=== PATIENT | female | born 1980 | race Caucasian/White ===

== ENCOUNTER 2016-12-01 15:18 | Emergency (ER) | payer OTHER ==
[~2016-12-01] VITALS: Ht 152.4 cm; Wt 45.4 kg
[~2016-12-01 15:18] MED LIST: ABILIFY30 M1 PO; DOXYCYCLINE MO100 MG PO; NEURONTIN600 M1 PO; TRAZODONE HCL50 M1 PO; ZOFRAN ODT4 M1 PO; [UNRECOGNIZED DRUG - OTHER] PO
[2016-12-01 15:20] VITALS: BP 114/73
--- NOTE | 2016-12-01 15:44 | ED HAND/WRIST INJURY COMPLAINT ---
History of Present Illness General Chief Complaint: Hand or Wrist Injury Stated Complaint: INJURY TO L HAND Source: patient, old records Exam Limitations: no limitations Vital Signs & Intake/Output Vital Signs & Intake/Output Vital Signs Date Time Temp Pulse Resp B/P Pulse O2 O2 Flow FiO2 Ox Delivery Rate 12/01 1550 98 Room Air 12/01 1520 97.1 69 20 114/73 97 Room Air ED Intake and Output 12/02 0000 12/01 1200 Intake Total Output Total Balance Patient 99 lb 15.99 oz Weight Allergies Coded Allergies: lithium (Intermediate, RASH 12/01/16) Reconcile Medications Aripiprazole (Abilify) 30 MG TABLET 1 TAB PO QAM MENTAL HEALTH (Reported) Gabapentin (Neurontin) 600 MG TABLET 1 TAB PO TID MENTAL HEALTH (Reported) Hydrocodone/Acetaminophen ([place] 5-325 Tablet) 5 MG-325 MG TABLET 1 TAB PO Q4- 6 PRN PRN pain Propranolol HCl 20 MG TABLET 1 TAB PO TID PRN ANXIETY (Reported) Trazodone HCl 50 MG TABLET 1-2 TAB PO QPM SLEEP (Reported) Triage Note: TRIAGE: PT TO ER C/C PAIN TO L HAND FROM L PINKY FINGER INTO HAND S/P INJURY YESTERDAY. STATES SHE SLAMMED IT IN A DOOR YESTERDAY. HAS BEEN ICING IT WITH SOME TEMPORARY RELIEF. HAS NOT TRIED ANY OTC PAIN MEDICATIONS. MEDICATED WITH TYLENOL PER PROTOCOL AND PT REQUEST AT TRIAGE. UNSURE OF LAST MENSES, STATES "I WAS ON THE PILL SO I WASN'T REALLY HAVING ONE". Triage Nurses Notes Reviewed? yes Occurred: yesterday Duration: day(s): (2), constant Timing: recent history Injury Environment: home Severity: moderate Severity Numbers: 7 Pain/Injury Location: Left: Hand, 5th finger. Context: blow Method of Injury: direct blow Modifying Factors: Improves With: pain medication, rest. Worsens With: movement. Associated Symptoms: swelling : No Patient currently breastfeeds: No HPI: 36-year-old female presents to the ER complaining of sudden onset of left hand and left fifth finger pain sudden in onset aching throbbing in nature since last night when she accidentally closed a door on her hand. She states she's been applying ice and taking Tylenol without improvement. She is right-hand dominant. She denies any wrist or forearm pain no numbness or tingling. She denies any left first through fourth finger pain or no modifying factors or associated symptoms otherwise (FREDDY WHITE) Past History Travel History Traveled to [place] past 21 day No Medical History Any Pertinent Medical History? 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 No (FREDDY WHITE) Review of Systems Review of Systems Constitutional: Reports: see HPI. All Other Systems: Reviewed and Negative Comments Review of systems: See HPI, All other systems negative. Constitutional, no chills no fever, no malaise HEENT: No visual changes no sore throat no congestion Cardiovascular: No chest pain , no palpitation Skin, no jaundice no rashes, no change in skin Respiratory: No dyspnea no cough no sputum GI: No nausea no vomiting, no diarrhea : No dysuria Muscle skeletal: joint pain, no back pain, no neck pain, Neurologic: No numbness no headache Psych: No stress no anxiety Heme/endocrine: No bruising no bleeding Immunology: No lymphadenopathy, (FREDDY WHITE) Physical Exam Physical Exam General Appearance: well developed/nourished, alert, awake Hand Left: swelling Hand Right: normal inspection, normal range of motion Comments: Well-developed well-nourished patient in no apparent distress. HEENT: Atraumatic, extraocular motion intact Neck: Supple, FROM Back: FROM Cardiovascular: Regular rate and rhythms no murmurs Respiratory: No respiratory distress. Patient speaking in full complete sentences. Shoulder: Atraumatic/Stable. FROM . Elbow: Atraumatic/stable. FROM. No laxity Upper arm/Forearm: Atraumatic. Nontender. 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 Brisk cap refill Lower Extremities: full range of motion Neuro: Alert and oriented x3 Skin: Warm & dry;No appreciable rash on exposed skin Psych: Mood affect normal, normal memory normal judgment. (FREDDY WHITE) Progress Differential Diagnosis: compartment syndrome, dislocation, fracture, sprain Plan of Care: Orders Procedure Date/time Status URINE 12/01 160 Complete Laboratory Tests 12/01/16 1610: Urine Test NEGATIVE X-rays ordered patient medicated Tylenol in triage Discussed with patient her x-ray results need for supportive care rest ice information provided for follow-up with orthopedist this week (GRACIELA SCHROEDER,FREDDY) Diagnostic Imaging: Viewed by Me: Radiology Read. Discussed w/RAD: Radiology Read. Radiology Impression: PATIENT: EDWIN PELAYO PRESENT AGE: 36 PATIENT ACCOUNT NO: [id number] : 78 LOCATION: [facility] ORDERING PHYSICIAN: FREDDY SCHROEDER SERVICE DATE: 12/01/16-1540 EXAM TYPE: RAD - XRY-HAND, LEFT EXAMINATION: XR HAND, LEFT CLINICAL INFORMATION: Trauma to the fifth metacarpal. Now with pain. COMPARISON: None TECHNIQUE: AP, lateral, and oblique views of the left hand. FINDINGS: There is an oblique slightly displaced fracture of the mid diaphyseal shaft of the fifth metacarpal. Fracture does not involve the articular surfaces of the bone. There is no dislocation. IMPRESSION: Oblique fracture of the fifth metacarpal. DICTATED BY: ANETA BOWERS MD DATE/TIME DICTATED:12/01/161637 MAC ARTIST:MARY DATE/TIME TRANSCRIBED:12/01/161637 CONFIDENTIAL, DO NOT COPY WITHOUT APPROPRIATE AUTHORIZATION. <Electronically signed in Other Vendor System> SIGNED BY: ANETA BOWERS MD 12/01/161642 (FREDDY WHITE) Departure Departure Time of Disposition: 1641 Disposition: HOME OR SELF CARE Condition: Stable Clinical Impression Primary Impression: Hand fracture, left Referrals: MARY ANNE BURDICK DO (PCP/Family) ELVIN SOLANO MD Additional Instructions: Rest, ice, Tylenol Motrin as needed for pain. Percocet for breakthrough pain caution as this is a narcotic highly addictive. No driving or drinking alcohol while taking. This was sent to pharmacy. Follow-up with orthopedist Dr. Solano tomorrow. Keep splint on at all times, return anytime sooner with any concerns Departure Forms: Customer Survey General Discharge Information Prescriptions: Current Visit Scripts Hydrocodone/Acetaminophen ([place] 5-325 Tablet) 1 TAB PO Q4-6 PRN PRN pain #15 TAB (FREDDY WHITE) PA/REINSTATEMENT CLERK Co-Sign Statement Statement: ED Attending supervision documentation- [] I saw and evaluated the patient. I have also reviewed all the pertinent lab results and diagnostic results. I agree with the findings and the plan of care as documented in the PA's/REINSTATEMENT CLERK's documentation. [X] I have reviewed the ED Record and agree with the PA's/REINSTATEMENT CLERK's documentation. [] Additions or exceptions (if any) to the PAs/REINSTATEMENT CLERK's note and plan are summarized below: [] (MAREN TILLEY,BRENDA) Procedures Splinting Location: lue Manual Alignment Performed: No Hand-Made Type: orthoglass Splint: ulnar Splint Applied By: splint applied by me Pre-Proc Neuro Vasc Exam: normal Post-Proc Neuro Vasc Exam: normal (FREDDY WHITE)
[2016-12-01] MEDS ORDERED: PROPRANOLOL HCL20 M1 PO (16:02)
[2016-12-01] MEDS ORDERED: NORCO 5-325 TA1 EACH PO (16:43)
--- NOTE | 2016-12-01 16:43 | RADIOLOGY REPORT ---
EXAMINATION: XR HAND, LEFT CLINICAL INFORMATION: Trauma to the fifth metacarpal. Now with pain. COMPARISON: None TECHNIQUE: AP, lateral, and oblique views of the left hand. FINDINGS: There is an oblique slightly displaced fracture of the mid diaphyseal shaft of the fifth metacarpal. Fracture does not involve the articular surfaces of the bone. There is no dislocation. IMPRESSION: Oblique fracture of the fifth metacarpal.
== END 2016-12-01 16:55 ==
LOC: ERH 15:18
DX: S62.327A Displaced fracture of shaft of fifth metacarpal bone, left hand, initial encounter for closed fracture (principal); W23.0XXA Caught, crushed, jammed, or pinched between moving objects, initial encounter; Y93.9 Activity, unspecified; Y92.9 Unspecified place or not applicable
CPT/HCPCS: 73130-LT; 81025